=== PATIENT | male | born 1980 | race Caucasian/White ===

== ENCOUNTER 2017-02-02 16:46 | Emergency (ER) | payer OTHER ==
[~2017-02-02] VITALS: Ht 175.3 cm; Wt 81.6 kg
[2017-02-02] MEDS ORDERED: TDAP DIPH,PERTUSS,TET VAC/PF 0.5 ML DISP.SYRIN IM ONE ×2 (18:15→18:48)
--- NOTE | 2017-02-02 18:38 | NUR ---
PT WAS EVALUATED BY DR CLARK. PT WAS MEDICATED ACCORDING TO ER MD ORDERS. PT TOLERATED TO MEDICATION WITHOUT COMPLICATIONS. PT WAS D/C TO HOME. D/C INSTRUCTIONS GIVEN TO THE PT. NO BLEEDING. DRESSING IS INTACT.
[2017-02-02 19:06] VITALS: BP 136/76
== END 2017-02-02 19:07 | disposition home or self-care (01) ==
LOC: ER 16:46
DX: S46.911A Strain of unspecified muscle, fascia and tendon at shoulder and upper arm level, right arm, initial encounter (principal); S61.411A Laceration without foreign body of right hand, initial encounter; W45.8XXA Other foreign body or object entering through skin, initial encounter; Y93.89 Activity, other specified; Y92.89 Other specified places as the place of occurrence of the external cause; Y99.8 Other external cause status
CPT/HCPCS: 12002; 73030; 73130; 90471; 90715; 99284; A4663

== ENCOUNTER 2019-05-01 10:38 | Emergency (ER) | payer MEDICAID, OTHER ==
[~2019-05-01] VITALS: Ht 165.1 cm; Wt 72.6 kg
[2019-05-01] MEDS ORDERED: FLUORESCEIN SODIUM 1 MG STRIP ONE (11:13)
[2019-05-01] MEDS ORDERED: TETRACAINE HCL 0.5% OPHT DROP 2 ML BOTTLE ONE (11:13)
[2019-05-01] MEDS ORDERED: CIPROFLOXACIN 0.3% OPHT DROP 2.5 ML BOTTLE ONE (11:19)
[2019-05-01] MEDS ORDERED: FLUORESCEIN SODIUM 1 MG STRIP OP ONE (11:30)
[2019-05-01] MEDS ORDERED: TETRACAINE HCL 0.5% OPHT DROP 2 ML BOTTLE OP ONE (11:30)
[2019-05-01] MEDS ORDERED: CIPROFLOXACIN 0.3% OPHT DROP 2.5 ML BOTTLE OP ONE (11:30)
--- NOTE | 2019-05-01 11:36 | NUR ---
Patient given written and verbal discharge instructions. Patient verbalizes understanding of instructions. Patient is ambulatory with steady gait. Refuses offer of senior care placement. Patient given list of available shelters in surrounding area.
== END 2019-05-01 11:37 | disposition home or self-care (01) ==
LOC: ER 10:40
DX: H00.021 Hordeolum internum right upper eyelid (principal)
CPT/HCPCS: A4663

== ENCOUNTER 2020-10-16 13:55 | Emergency (ER) | payer SELFPAY ==
[~2020-10-16] VITALS: Ht 175.3 cm; Wt 79.4 kg
--- NOTE | 2020-10-16 14:30 | NUR ---
AT BEDSIDE FOR ASSESSMENT
[2020-10-16] MEDS ORDERED: HYDROCODONE/APAP 5-325MG TABLET PO ONE (14:45)
[2020-10-16] MEDS ORDERED: IBUP-1957 PO (15:04)
[2020-10-16] MEDS ORDERED: HYDR-3972 PO (15:04)
[2020-10-16] MEDS ORDERED: HYDROCODONE/APAP 5-325MG TABLET ONE (15:13)
--- NOTE | 2020-10-16 15:16 | NUR ---
Patient discharged to home in stable condition. No signs of acute distress. Written and verbal after care instructions given. Patient verbalizes understanding of instructions. Stressed follow up or return to ER for worsening s/s.
[2020-10-16 15:21] VITALS: BP 120/83
== END 2020-10-16 15:15 | disposition home or self-care (01) ==
LOC: ER 13:55
DX: S63.617A Unspecified sprain of left little finger, initial encounter (principal); S39.012A Strain of muscle, fascia and tendon of lower back, initial encounter; V49.49XA Driver injured in collision with other motor vehicles in traffic accident, initial encounter; Y92.411 Interstate highway as the place of occurrence of the external cause
CPT/HCPCS: 72100; 73130; A4663